=== PATIENT | male | born 1995 | race Caucasian/White ===

== ENCOUNTER 2019-10-11 17:22 | Emergency (ER) | payer OTHER ==
[2019-10-11 17:30] VITALS: BP 149/95; PULSE 61; RESP 20; TEMP 98.3
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
== END 2019-10-11 19:25 | disposition home or self-care (01) ==
LOC: EC 17:22
DX: Z02.83 Encounter for blood-alcohol and blood-drug test (principal); V78.5XXA Driver of bus injured in noncollision transport accident in traffic accident, initial encounter; Y99.0 Civilian activity done for income or pay
CPT/HCPCS: 99282